=== PATIENT | male | born 1995 | race African-American/Black ===

== ENCOUNTER 2016-12-21 23:15 | Emergency (ER) | payer SELFPAY ==
[~2016-12-21] VITALS: Ht 177.8 cm; Wt 80.0 kg
[~2016-12-21 23:15] MED LIST: DICL75TA PO
[2016-12-21 23:17] VITALS: BP 122/66; PULSE 62; RESP 16; TEMP 97.8; O2SAT 98
[2016-12-22] MEDS ORDERED: cefTRIAXone 250 MG VIAL IM ONE
[2016-12-22] MEDS ORDERED: AZITHROMYCIN PWD FOR SUSP 1 GM PACKET PO ONE
--- NOTE | 2016-12-22 00:03 | PD ---
HPI Chief Complaint: Complaint Time Seen by Provider: 23:58 Travel History International Travel<30 days: No Contact w/Intl Traveler<30days: No Traveled to known affect area: No History of Present Illness HPI 21-year-old black male presents to emergency Department with complaints of burning with urination and a urethral discharge for the past several days. He admits to unprotected sexual intercourse. He states that he feels he hasn't urinary tract infection because he has had one in the past. He states that he is circumcised. And he has not had any urinary tract infections until just recently. He denies any STDs. [facility] Past Medical History Narrative Medical UTI Tetanus Vaccination: < 5 Years Past Surgical History Surgical History: No Previous Surgery Social History Alcohol Use: No Tobacco Use: No Substance Use: No Allergies-Medications (Allergen,Severity, Reaction): Coded Allergies: No Known Allergies (Unverified , 12/21/16) Reported Meds & Prescriptions Reported Meds & Active Scripts Active Diclofenac Sodium DR (Diclofenac Sodium) 75 Mg Tabdr 75 Mg PO BID Review of Systems Except as stated in HPI: all other systems reviewed are Neg Gastrointestinal: No: Nausea, Vomiting, Abdominal Pain Genitourinary: Positive: Frequency, Dysuria, Discharge Musculoskeletal: No: Myalgias, Arthralgias Skin: No Rash, No Itching Physical Exam Narrative GENERAL: This is a well-nourished, well-developed patient, in no apparent distress. SKIN: No rashes, ecchymoses or lesions. Warm and dry. HEAD: Atraumatic. Normocephalic. EYES: PERRL, EOMI, no discharge or injection. No scleral icterus. EARS: Clear NOSE: Nasal turbinates appear normal. THROAT: Mucosa pink and moist. Airway patent. NECK: Trachea midline. supple, moves head freely. LUNGS: Clear to auscultation. CV: Regular in rhythm. ABDOMEN: Soft nontender. EXT: No clubbing cyanosis or edema. GENITOURINARY: Circumcised. Testes descended bilaterally without evidence of rotation. No lesions or erythema. Positive yellowish beige urethral discharge. Data Data Last Documented VS Vital Signs Date Time Temp Pulse Resp B/P Pulse Ox O2 Delivery O2 Flow Rate FiO2 12/21/16 23:17 97.8 62 16 122/66 98 Room Air MDM Medical Decision Making Medical Screen Exam Complete: Yes Emergency Medical Condition: Yes Medical Record Reviewed: Yes Differential Diagnosis MDM: Moderate Differential diagnoses: Chlamydia, gonorrhea, syphilis, chancroid, hepatitis, HIV, herpes Narrative Course Patient has symptoms consistent with gonorrhea. Patient is given Rocephin 250 IM and Zithromax 1 g by mouth. Patient's advised to perform partner notification. He needs to follow-up with the health department for further STD testing. Diagnosis Primary Impression: Urethritis Patient Instructions: General Instructions Additional Instructions: Rest. Partner notification. Follow[facility] with [facility] for further STD testing such as HIV, syphilis and hepatitis. No intercourse until all partners treated. Always use a condom. Return to the ER if any problems. Condition: Neo Bhakta Dec 22, 2016 00:02
[2016-12-22 01:05] LABS: BLOOD, URINE NEG (NEG); GLUCOSE,URINE NEG (NEG); KETONE, URINE NEG (NEG); NITRITE,URINE NEG (NEG); PH, URINE 5.5 (5.0-8.5); URINE COLOR YELLOW (YELLW/STRAW)
[2016-12-22 01:06] LABS: COMMENT (UR) CULT NOT INDICATED; CULTURE IF INDICATED CULT NOT INDICATED
[2016-12-22 03:00] LABS: CHLAMYDIA PCR DETECTED (NOT DETECT); NEISSERIA PCR NOT DETECTED (NOT DETECT)
== END 2016-12-22 00:42 | disposition home or self-care (01) ==
LOC: NETRI 23:15
DX: N34.2 Other urethritis (principal)
CPT/HCPCS: 81001; 87491; 87591; 96372; 99283; J0696